=== PATIENT | male | born 1945 | race Caucasian/White ===

== ENCOUNTER 2016-12-02 09:41 | Outpatient (CLI) ==
[2015-04-15 14:30] VITALS: BMI 32.3
[2016-12-02 09:55] LABS: BASOPHILS # (AUTO) 0.1 K/uL (0-0.2); BASOPHILS % (AUTO) 0.7 % (0.0-3.0); EOSINOPHILS # (AUTO) 0.2 K/ul (0.0-0.7); HEMATOCRIT 41.5 % (42.0-52.0); HEMOGLOBIN 14.4 g/dl (14.0-18.0); IMMATURE GRANULOCYTE % (AUTO) 0.2 % (0.0-5.0); LYMPHOCYTES # (AUTO) 3.5 K/uL (0.60-3.4); MEAN CORPUSCULAR HEMOGLOBIN 31.6 pg (27.0-31.0); MEAN CORPUSCULAR HGB CONC 34.7 (31.8-35.4); MEAN CORPUSCULAR VOLUME 91.2 fl (80.0-94.0); MONOCYTES # (AUTO) 0.8 K/uL (0.4-2.0); MONOCYTES % (AUTO) 9.6 (0-10); NEUTROPHILS # (AUTO) 3.5 K/ul (2.0-6.9); NEUTROPHILS % (AUTO) 43.5; PLATELET COUNT 214 10^3/uL (140-440); RED BLOOD COUNT 4.55 10^6/ul (4.70-6.10); WHITE BLOOD COUNT 8.04 K/ul (4.2-10.2)
[2016-12-02 10:32] LABS: ALBUMIN 3.6 g/dL (3.4-5.0); ALBUMIN/GLOBULIN RATIO 1.06; ANION GAP 14.3; BILIRUBIN,TOTAL 0.43 mg/dL (0.00-1.20); BUN/CREATININE RATIO 16.77; CALCIUM 9.3 mg/dL (8.2-10.2); CHOL/HDL RATIO 4.8 (4.5-6.4); CREATININE 1.61 mg/dL (0.60-1.10); POTASSIUM 4.3 mmol/L (3.5-5.1)
== END 2016-12-02 09:42 | disposition home or self-care (01) ==
LOC: LAB 09:41
PROVIDERS: ATTEND Nurse Practitioner Family
DX: I10 Essential (primary) hypertension (principal); E03.9 Hypothyroidism, unspecified; E78.5 Hyperlipidemia, unspecified
CPT/HCPCS: 36415; 80053; 80061; 84443; 85025

== ENCOUNTER 2017-05-22 10:48 | Outpatient (CLI) ==
[2015-04-15 14:30] VITALS: BMI 32.3
[2017-05-22 11:16] LABS: BASOPHILS # (AUTO) 0.1 K/uL (0-0.2); BASOPHILS % (AUTO) 1.2 % (0.0-3.0); EOSINOPHILS # (AUTO) 0.3 K/ul (0.0-0.7); EOSINOPHILS % (AUTO) 5.5 % (0.0-7.0); IMMATURE GRANULOCYTE % (AUTO) 0.3 % (0.0-5.0); LYMPHOCYTES # (AUTO) 2.5 K/uL (0.60-3.4); LYMPHOCYTES % (AUTO) 41.4 (10.0-50.0); MEAN CORPUSCULAR HEMOGLOBIN 32.2 pg (27.0-31.0); MONOCYTES # (AUTO) 0.6 K/uL (0.4-2.0); MONOCYTES % (AUTO) 9.8 (0-10); NEUTROPHILS # (AUTO) 2.5 K/ul (2.0-6.9); NEUTROPHILS % (AUTO) 41.8; PLATELET COUNT 194 10^3/uL (140-440); RED BLOOD COUNT 4.35 10^6/ul (4.70-6.10); WHITE BLOOD COUNT 6.02 K/ul (4.2-10.2)
[2017-05-22 11:56] LABS: ALBUMIN 3.6 g/dL (3.4-5.0); ALBUMIN/GLOBULIN RATIO 1.06; ANION GAP 14.6; BILIRUBIN,TOTAL 0.53 mg/dL (0.00-1.20); BUN/CREATININE RATIO 22.07; CALCIUM 9.5 mg/dL (8.2-10.2); CHOL/HDL RATIO 4.7 (4.5-6.4); CREATININE 1.54 mg/dL (0.60-1.10); POTASSIUM 4.6 mmol/L (3.5-5.1)
== END 2017-05-22 10:49 | disposition home or self-care (01) ==
LOC: LAB 10:48
PROVIDERS: ATTEND Nurse Practitioner Family
DX: I10 Essential (primary) hypertension (principal); E78.5 Hyperlipidemia, unspecified; E03.9 Hypothyroidism, unspecified
CPT/HCPCS: 36415; 80053; 80061; 84443; 85025

== ENCOUNTER 2017-05-23 12:57 | Outpatient (CLI) ==
[2015-04-15 14:30] VITALS: BMI 32.3
== END 2017-05-23 12:58 | disposition home or self-care (01) ==
LOC: LAB 12:57
PROVIDERS: ATTEND Nurse Practitioner Family
DX: Z12.5 Encounter for screening for malignant neoplasm of prostate (principal); E78.5 Hyperlipidemia, unspecified; R94.4 Abnormal results of kidney function studies
CPT/HCPCS: 36415

== ENCOUNTER 2017-07-21 11:45 | Outpatient (CLI) ==
[2015-04-15 14:30] VITALS: BMI 32.3
[2017-07-21 12:21] LABS: ALBUMIN 3.5 g/dL (3.4-5.0); ALBUMIN/GLOBULIN RATIO 1.06; ANION GAP 13.4; BILIRUBIN,TOTAL 0.55 mg/dL (0.00-1.20); BUN/CREATININE RATIO 16.25; CALCIUM 9.5 mg/dL (8.2-10.2); CHOL/HDL RATIO 3.9 (4.5-6.4); CREATININE 1.6 mg/dL (0.60-1.10); POTASSIUM 4.4 mmol/L (3.5-5.1); TOTAL PROTEIN 6.8 g/dL (5.8-8.1)
== END 2017-07-21 11:46 | disposition home or self-care (01) ==
LOC: LAB 11:45
PROVIDERS: ATTEND Nurse Practitioner Family
DX: E78.5 Hyperlipidemia, unspecified (principal); R94.4 Abnormal results of kidney function studies
CPT/HCPCS: 36415; 80053; 80061

== ENCOUNTER 2017-07-24 10:05 | Outpatient (CLI) ==
[2015-04-15 14:30] VITALS: BMI 32.3
== END 2017-07-24 10:06 | disposition home or self-care (01) ==
LOC: CAR 10:05
PROVIDERS: ATTEND Nurse Practitioner Family
DX: I10 Essential (primary) hypertension (principal); I49.9 Cardiac arrhythmia, unspecified
CPT/HCPCS: 93005; 93010

== ENCOUNTER 2018-05-11 08:37 | Outpatient (CLI) ==
[2015-04-15 14:30] VITALS: BMI 32.3
== END 2018-05-11 08:38 | disposition home or self-care (01) ==
LOC: LAB 08:37
PROVIDERS: ATTEND Nurse Practitioner Family
DX: E78.5 Hyperlipidemia, unspecified (principal); I10 Essential (primary) hypertension
CPT/HCPCS: 36415; 80053; 80061; 84443; 85025

== ENCOUNTER 2019-04-05 09:47 | Outpatient (CLI) ==
[2015-04-15 14:30] VITALS: BMI 32.3
== END 2019-04-05 09:48 | disposition home or self-care (01) ==
LOC: LAB 09:47
PROVIDERS: ATTEND Nurse Practitioner Family
DX: E78.5 Hyperlipidemia, unspecified (principal); I10 Essential (primary) hypertension; E03.9 Hypothyroidism, unspecified; Z12.5 Encounter for screening for malignant neoplasm of prostate
CPT/HCPCS: 36415; 80053; 80061; 84443; 85025

== ENCOUNTER 2019-04-10 07:53 | Outpatient (CLI) ==
[2015-04-15 14:30] VITALS: BMI 32.3
== END 2019-04-10 07:54 | disposition home or self-care (01) ==
LOC: RHC-LAB 07:53
PROVIDERS: ATTEND Nurse Practitioner Family
DX: I10 Essential (primary) hypertension (principal)
CPT/HCPCS: 36415; 85025